=== PATIENT | female | born 1980 | race Hispanic/Latino ===

== ENCOUNTER 2016-09-10 07:30 | Inpatient (IN) | payer OTHER, BC ==
--- NOTE | 2016-09-02 21:22 | History and Physical Report ---
History of Present Illness Date of examination: 09/02/16 Date of admission: 09/10/2016 Chief complaint: 36 yo A1 at 39 weeks admitted for elective c/s for history of prior shoulder dystocia. She also has Reflex Sympathetic Dystrophy and chronic pain which is managed by a pain specialist, Dr Senthil Carrion. He recommended a 48 hour epidural for any or other major operation, as confirmed by [facility] , to avoid a trigger of her RSD. She had a 24 hour epidural for her prior vaginal delivery. She currently takes Morphine sulfate ER 30mg po daily. MBT O pos, rub Imm, GBS neg History of present illness: Remainder of H&P from [facility] and confirmed today OB Intake Father of baby: ANIRUDH PFEIFFER (BRANDON) FOB contact #: [phone] Vital Signs Height: 61 in. Weight (lb): 151.6 BMI: 28.7 Pre- Weight: 148 BP: 100/ 72 mm Hg Ur. Protein: Negative Ur. Glucose: Negative Chief Complaint/Current Status: pt presents c/o missed period ...................................................................Carolyn Skaggs February 07, 2016 2:15 PM Menstrual History Regularity: regular Menses every: 28 days Duration: 4 LMP: 12/11/2015 LMP reliability: definite LMP character: normal test type: urine test Date: 02/07/2016 Planned ? yes EDC Calculations LMP: 09/16/2016 Initial exam (date): 02/07/2016 = 8 Exam: 09/18/2016 EDC Confirmation: 09/16/2016 Gestational Age: 8 2/7 weeks Past History : 2 Term Births: 1 Premature Births: 0 Living Children: 1 Para: 1 Mult. Births: 0 Prev : 0 Aborta: 1 Spont. 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 mucous colitis endometriosis Past Surgical History: Reviewed history from 03/30/2012 and no changes required: positive Past Medical History Anesthesia Complications: negative Anemia: negative Autoimmune Disorder: positive Bleeding Disorder: negative Blood Transfusions: negative Breast Disease: negative Diabetes: negative Heart Disease: negative Hypertension: negative Hepatitis/Liver Disease: negative Kidney Disease/UTI: negative Neurologic/Epilepsy/Migraines: negative Phlebitis/Varicosities: negative Psychiatric: negative Pulmonary Disease/Asthma: negative Thyroid Disease: negative Hospitalizations: negative Surgery (Non-architectural technologist): positive Abnormal PAP: negative KENISHA Exposure: negative Infertility: negative Uterine Anomaly: negative Uterine Surgery (not C/S): negative Other Gynecologic Problems: positive, endometriosis Social Hx: Patient is no etoh, no illicit drug use, no tobacco use Infection History Personal hx. of genital herpes: no Partner hx. of genital herpes: no Varicella/Chicken Pox Status: Previous Disease Genetic History Congenital Heart Defect: Mom: no Dad: no Ana M Disease: Mom: no Dad: no Thalassemia Mom: no Dad: no Neural Tube Defect Mom: no Dad: no Down's Syndrome Mom: no Dad: no Duke-Sachs Mom: no Dad: no Sickle Cell Disease/Trait Mom: no Dad: no Hemophilia Mom: no Dad: no Muscular Dystrophy Mom: no Dad: no Cystic Fibrosis Mom: no Dad: no [place] Chorea Mom: no Dad: no Mental Retardation Mom: no Dad: no Fragile X Mom: no Dad: no Other Genetic/Chromosomal Disorder Mom: no Dad: no Child w/other defect Mom: no Dad: no Enviromental Exposures Enviromental Exposures Reviewed Xray Exposure: no Medication, drug, or alcohol use since LMP: no Chemical/Other Exposure: no Exposure to Cat Liter: no Hx of Parvovirus (Fifth Disease): no Occupational Exposure to Children: none Active Medications (reviewed today): PNV () Current Allergies (reviewed today): No known allergies Laboratory Results Routine Urinalysis Leukocytes: negative Nitrite: negative Urobilinogen: negative Protein: Negative Blood: negative Ketone: negative Bilirubin: negative Glucose: Negative Urine HCG: positive Review of Systems General Denies fever, chills, sweats, anorexia, fatigue, weakness, malaise, weight loss and sleep disorder. Denies nausea, vomiting, headache, swelling of legs, abdominal pain, vaginal discharge, vaginal bleeding and contractions. Denies vaginal discharge, incontinence, dysuria, hematuria, urinary frequency, amenorrhea, menorrhagia, abnormal vaginal bleeding, pelvic pain, genital sores, decreased libido, painful periods, painful sex, urinary urgency, hot flashes, vaginal dryness, vaginal itching and vaginal odor. CV Denies chest pains, palpitations, syncope, dyspnea on exertion, orthopnea, PND and peripheral edema. Resp Denies cough, dyspnea at rest, excessive sputum, hemoptysis, wheezing and pleurisy. GI Denies nausea, vomiting, diarrhea, constipation, change in bowel habits, abdominal pain, melena, hematochezia, jaundice, gas/bloating, indigestion/ heartburn, dysphagia and odynophagia. Endo Denies cold intolerance, heat intolerance, polydipsia, polyphagia, polyuria and unusual weight change. Breast Denies left breast lump, right breast lump, nipple discharge, bloody discharge from nipple, breast pain, abnormal mammogram and breast enlargement. PHYSICAL EXAM HEENT: PERRLA, normal conjunctiva, external nose and nasal mucosa normal, oropharynx clear Neck/Thyroid: supple, thyroid normal Skin no significant abnormal lesions or rashes Chest: respiratory effort normal, clear to auscultation Breasts: normal without skin changes or masses CV: regular, normal S1-S2, no murmur, no rub, no gallop Abdomen: normal bowel sounds, soft, nontender, no HSM Musculoskeletal: grossly normal ROM in joints, no joint tenderness or muscle weakness Neuro: grossly normal DTRs, sensation, strength, cranial nerves Extremities: no clubbing, cyanosis, or edema DEPLOYMENT TECHNICIAN Exams Vulva/Vagina: No lesions, normal BUS, normal rugae Cervix: No lesions; no cervical motion tenderness Uterus: normal size and position, midline, mobile Fundal Ht: 8 Adnexae: no masses or tenderness Rectovaginal: no masses or tenderness Flowsheet View for Follow-up Visit Estimated weeks of gestation: 8 2/7 Weight: 151.6 Blood pressure: 100 / 72 Urine protein: Negative Urine glucose: Negative Urine nitrite: negative Fundal height: 8 Past History - Obstetrical History : 2 Medications and Allergies Allergies Allergy/AdvReac Type Severity Reaction Status Date / Time No Known Allergies Allergy Verified 12/29/13 09:27 Home Medications Medication Instructions Recorded Confirmed Last Taken Type Morphine Sulfate [Morphine Sulfate 30 mg PO DAILY 12/29/13 12/29/13 12/29/13 06: 30 History ER] 30mg Vit No.126/Iron/FA 1 tab PO DAILY 12/29/13 12/29/13 12/28/13 06:30 History [Classic Tablet] 1 tab lamoTRIgine [Lamotrigine] 200 mg PO DAILY 12/29/13 12/29/13 12/29/13 06:30 History 1 tab Lidocaine/Prilocaine [Emla Cream] 5 gm TP ONCE #1 cream..g. 12/31/13 Unknown Rx Results All other labs normal.
[2016-09-11] MEDS ORDERED: REGLAN IV SCH (06:00)
[2016-09-11] MEDS ORDERED: PEPCID IV SCH (06:00)
[2016-09-11] MEDS ORDERED: BICITRA PO SCH (06:00)
[2016-09-11] MEDS ORDERED: ANCEF/STERILE WATER 2 GM/20 ML 20 ML IV NR (06:00)
[2016-09-11] MEDS ORDERED: PITOCin/NS 20 UNIT/1000ML DRIP 1,000 ML IV NR (06:00)
[2016-09-11] MEDS ORDERED: ZOFRAN IV PRN (10:29)
[2016-09-11] MEDS ORDERED: DILAUDID IV PRN (10:29)
[2016-09-11] MEDS ORDERED: BENADRYL IV PRN (10:29)
[2016-09-11] MEDS ORDERED: NARCAN 0.4 MG/1 ML IV PRN ×2 (10:29→13:52)
--- NOTE | 2016-09-11 10:29 | Anesthesia Consultation ---
Anesthesia Consult and Med Hx Date of service: 09/11/16 - Airway Anesthetic Teeth Evaluation: Good ROM Head & Neck: Adequate Mental/Hyoid Distance: Adequate Mallampati Class: Class II Intubation Access Assessment: Probably Good - Pre-Operative Health Status ASA Pre-Surgery Classification: ASA2 Proposed Anesthetic Plan: Epidural, Spinal - Pulmonary Hx Asthma: No COPD: No Hx Pneumonia: No - Cardiovascular System Hx Hypertension: No - Central Nervous System Hx Neuromuscular Disorder: Yes ( reflex sympathetic dystrophy of right foot) Hx Seizures: No Hx Back Pain: (h/o around 250 lumbar epidural injections) Hx Psychiatric Problems: No - Endocrine Hx Renal Disease: No Hx End Stage Renal Disease: No Hx Hypothyroidism: No Hx Hyperthyroidism: No - Hematic Hx Anemia: No Hx Sickle Cell Disease: No - Other Systems Hx Alcohol Use: No Hx Obesity: Yes
--- NOTE | 2016-09-11 10:29 | Anesthesia Day of Surgery ---
Anesthesia Day of Surgery - Day of Surgery Patient Examined: Yes Patient H&P Reviewed: Yes Patient is NPO: Yes
[2016-09-11 10:59] LABS: Basophils % (Auto) 0.4 % (0.0-1.8); Eosinophils % (Auto) 0.7 % (0.0-4.3); Hematocrit 33.1 % (30.3-42.9); Hemoglobin 11.2 gm/dl (10.1-14.3); Mean Corpuscular HGB Conc 34 % (30-34); Mean Corpuscular Hemoglobin 30 pg (28-32); Mean Corpuscular Volume 90 fl (79-97); Platelet Count 320 K/mm3 (140-440); Red Blood Count 3.68 M/mm3 (3.65-5.03); Red Cell Distribution Width 13.7 % (13.2-15.2); White Blood Count 10.1 K/mm3 (4.5-11.0)
[2016-09-11] MEDS ORDERED: SODIUM CHLORIDE FLUSH SYRINGE 10 ML IV NR (11:00)
[2016-09-11] MEDS ORDERED: fentaNYL-BUPIV 2 MCG/ML-0.125% 100 ML EPIDURAL SCH (11:00)
[2016-09-11] MEDS: LACTATED RINGERS 1,000 ML IV NR ×2 (11:00→11:47)
[2016-09-11] MEDS ORDERED: MORPHINE ONE (12:09)
[2016-09-11] MEDS ORDERED: NACL 0.9% IR ONE (12:15)
[2016-09-11] MEDS ORDERED: WATER FOR IRRIG STERILE IR ONE (12:15)
[2016-09-11] MEDS ORDERED: NACL 0.9% 1000 ML 1,000 ML ONE (12:51)
[2016-09-11] MEDS ORDERED: ZOFRAN ONE (12:51)
[2016-09-11] MEDS ORDERED: ePHEDrine SULFATE ONE (13:20)
--- NOTE | 2016-09-11 13:51 | Operative Report ---
Operative Report Operative Report: Date of procedure: 09/11/2016 Pre-operative diagnosis: 39-3/7 weeks' gestation Previous shoulder dystocia Post-operative diagnosis: Same Procedure name(s): Primary lower transverse section via Pfannenstiel skin incision Surgeon: Dr. Luna Information Security Associate: Ms. Leona Hawk CST Anesthesia: Epidural EBL: 500 mL Urine output: 100 mL of clear urine at end of the procedure Fluids: 1500 mL Findings: Liveborn male weight 6 lbs. 15 oz. Apgars of 9 and 9 at one and 5 minutes Normal fallopian tubes and ovaries bilaterally Indications: Patient presents for elective primary due to previous surgery dystocia with previous delivery. The estimated weight was believed to be approximately around the same pounds as previous shoulder dystocia. All risks benefits and alternatives were discussed with the patient. Patient was given ample time to ask questions all of which were addressed. Consents were signed and placed on the chart. Decision was made to proceed with primary section. Procedure: Patient was taking to the operating room. Patient was then prepped and draped in sterile fashion after anesthesia was found to be adequate. A low transverse skin incision was made with the scalpel and carried down to the underlying layer of fascia with the Bovie. The fascia was then incised in the midline and this incision was extended bilaterally with the Bovie. The superior aspect of the fascia was grasped with Juliet clamps tented upward and dissected off of the anterior rectus muscles with the scalpel. In similar fashion the inferior aspect of the fascia was grasped with Juliet clamps tented upward and dissected off of the anterior rectus muscles. The rectus muscles were then bluntly divided in the midline. The peritoneum was identified and entered into sharply. The Yuniel retractor was placed. The bladder blade was placed. The bladder flap was created using the Metzenbaum scissors. The bladder blade was replaced. A lower transverse uterine incision was made with the scalpel and extended bilaterally with the bandage scissors. Artificial rupture of membranes was performed yielding clear amniotic fluid. The 's head was then delivered atraumatically. The anterior shoulder and rest of infant delivered without difficulty. The umbilical cord was clamped x2. The cord was cut. The infant was then placed in sterile bassinet. Cord blood was collected The placenta was manually extracted in its entirety. The uterus was exteriorized and cleared of all clots and debris. The uterine incision was closed using 0 Vicryl in a running locking fashion. A second imbricating layer of the same suture was then created. The posterior cul-de-sac was copiously irrigated. The uterus was returned to the abdomen. The seal was placed along the uterine incision to secure excellent hemostasis. The gutters were also irrigated. The anterior rectus muscles were reapproximated using 3-0 Vicryl. The anterior rectus fascia was reapproximated using 0 Vicryl in a running fashion. The subcuticular fat was reapproximated using 2-0 Vicryl in a running fashion. The skin was reapproximated with 4-0 Monocryl in a subcuticular stitch. The patient tolerated the procedure well. Sponge lap and needle counts were all correct x3. Patient was taken to the recovery room awake and in stable condition.
[2016-09-11] MEDS ORDERED: TUCKS PAD TP PRN (13:52)
[2016-09-11] MEDS ORDERED: LANSINOH TP PRN (13:52)
[2016-09-11] MEDS ORDERED: MOTRIN PO PRN (13:52)
[2016-09-11] MEDS ORDERED: MORPHINE IV PRN (13:52)
[2016-09-11] MEDS ORDERED: ANCEF/NS 1 GM/50 ML 50 ML IV SCH (14:00)
[2016-09-11] MEDS ORDERED: D5LR 1,000 ML IV SCH (14:00)
[2016-09-11] MEDS ORDERED: PITOCin/NS 20 UNIT/1000ML DRIP 1,000 ML IV SCH (14:00)
[2016-09-11] MEDS ORDERED: NORCO 5/325 PO PRN (14:07)
[2016-09-11] MEDS: TORADOL IV PRN (17:10)
[2016-09-11] MEDS: D5LR 1,000 ML IV SCH (17:15)
[2016-09-11] MEDS: ANCEF/NS 1 GM/50 ML 50 ML IV SCH (23:30)
[2016-09-12] MEDS ORDERED: PHENERGAN PO PRN (00:20)
[2016-09-12] MEDS ORDERED: PHENERGAN PR PRN (00:20)
[2016-09-12] MEDS ORDERED: ZOFRAN IV PRN (00:20)
[2016-09-12] MEDS ORDERED: SODIUM CHLORIDE FLUSH SYRINGE 10 ML IV PRN (01:00)
[2016-09-12] MEDS: fentaNYL-BUPIV 2 MCG/ML-0.125% 100 ML EPIDURAL SCH ×2 (01:10→12:50)
[2016-09-12] MEDS: D5LR 1,000 ML IV SCH ×3 (01:13→17:06)
[2016-09-12] MEDS: TORADOL IV PRN ×4 (01:41→21:32)
[2016-09-12] MEDS: BENADRYL PO PRN ×2 (01:42→21:41)
[2016-09-12 02:09] LABS: Hematocrit 26.7 % (30.3-42.9); Hemoglobin 8.8 gm/dl (10.1-14.3)
[2016-09-12] MEDS: ANCEF/NS 1 GM/50 ML 50 ML IV SCH (06:30)
--- NOTE | 2016-09-12 08:11 | Progress Note ---
Assessment and Plan patient doing well, no complaints. reports pain very well controlled. Lochia scant, incision D&I, VSSAF, H&H 8.8/26.7 (anemia d/t blood loss, acute). Continue current management. - Patient Problems (1) Reflex sympathetic dystrophy of lower limb Current Visit: No Status: Acute Plan to address problem: anesthesia to manage pain epidural to remain in place x48h (2) delivery delivered Current Visit: Yes Status: Acute (3) Anemia due to blood loss, acute Current Visit: Yes Status: Acute Plan to address problem: begin po iron monitor for s/s anemia Subjective - Subjective Date of service: 09/12/16 Principal diagnosis: postop day #1 s/p primary c/s Patient reports: appetite normal, pain well controlled, flatus, no nauseated : doing well, bottle feeding Objective - Vital Signs Latest vital signs: Vital Signs Temp Pulse Pulse Resp BP BP Pulse Ox 09/12/16 06:05 18 09/12/16 05:00 98.6 F 65 16 97/57 09/12/16 01:41 18 09/12/16 01:28 98.4 F 62 16 93/57 09/11/16 20:00 18 09/11/16 18:15 18 09/11/16 17:40 18 09/11/16 15:40 97.5 F L 76 18 100/66 09/11/16 14:50 97.5 F L 09/11/16 14:40 63 10 L 108/52 99 09/11/16 14:35 61 15 103/58 97 09/11/16 14:31 61 12 125/61 98 09/11/16 14:25 65 11 L 115/64 100 09/11/16 14:20 58 L 16 115/67 97 09/11/16 14:15 62 11 L 112/57 98 09/11/16 14:10 59 L 13 103/61 98 09/11/16 14:05 74 13 113/56 97 09/11/16 14:00 96.4 F L 78 11 L 116/65 99 09/11/16 13:55 59 L 14 111/56 97 09/11/16 13:50 83 11 L 112/54 96 09/11/16 13:48 69 11 L 99 09/11/16 10:59 98.5 F 97 H 18 120/78 97 09/11/16 10:26 98 H 97 Intake and Output 09/11/16 09/12/16 09/12/16 22:59 06:59 14:59 Intake Total 375 1050 Output Total 450 Balance -75 1050 Intake: IV 375 1050 Ancef/Sterile Water 2 gm/ 50 20 ml 20 ml @ 80 mls/hr IV PREOP NR Rx#:[id number] PITOCin/NS 20 UNIT/1000ML 375 250 DRIP 1,000 ML @ Per Protocol IV TITR NR Rx#: [id number] D5lr 1,000 ml @ 125 mls/ 750 hr IV DIRECT RAJWINDER Rx#: [id number] Output: Urine 450 Indwelling Catheter 450 Other: Total, Output Amount 450 - Exam Breasts: Present: normal Cardiovascular: Present: Regular rate Lungs: Present: Clear to auscultation, Normal air movement Abdomen: Present: normal appearance, soft Uterus: Present: normal, firm, fundal height at umbilicus Extremities: Present: normal Incision: Present: normal, dry, intact (dressing removed, incision D&I) - Labs Labs: Abnormal lab results 09/11/16 09/12/16 Range/Units 10:45 01:52 Hgb 8.8 L (10.1-14.3) gm/dl Hct 26.7 L D (30.3-42.9) % Seg Neutrophils % 73.4 H (40.0-70.0) %
[2016-09-12] MEDS ORDERED: FLUARIX QUAD 2016-2017(36 MOS+) IM ONE (12:00)
[2016-09-12] MEDS ORDERED: BOOSTRIX IM ONE (13:54)
--- NOTE | 2016-09-12 15:44 | Progress Note ---
Subjective Date of service: 09/12/16 Principal diagnosis: postop day #1 s/p primary c/s Interval history: POD #1. s/p Epidual cath infusing Toradol for breakthrough pain control No Nausea/vomiting Itching controlled with Benadryl Pain Score 5 Encouaged incentive spirometry use No anesthetic complications noted Objective - Constitutional Vitals: Vital Signs - 12hr 09/12/16 09/12/16 09/12/16 05:00 06:05 08:29 Temperature 98.6 F 98.6 F Pulse Rate [ 61 From Monitor] Pulse Rate [ 65 Left From Monitor] Respiratory 16 18 12 Rate Blood Pressure 97/57 93/62 [Left Arm] 09/12/16 09/12/16 09/12/16 08:30 10:00 11:55 Temperature 97.7 F Pulse Rate [ 68 From Monitor] Pulse Rate [ Left From Monitor] Respiratory 16 20 18 Rate Blood Pressure 101/61 [Left Arm] 09/12/16 09/12/16 09/12/16 12:48 12:50 14:00 Temperature Pulse Rate [ From Monitor] Pulse Rate [ Left From Monitor] Respiratory 16 16 20 Rate Blood Pressure [Left Arm] - Labs CBC & Chem 7: 09/12/16 01:52 Labs: Abnormal lab results 09/12/16 Range/Units 01:52 Hgb 8.8 L (10.1-14.3) gm/dl Hct 26.7 L D (30.3-42.9) %
[2016-09-12] MEDS: COLACE PO SCH (21:33)
[2016-09-12] MEDS: FEOSOL PO SCH (21:34)
[2016-09-13] MEDS: D5LR 1,000 ML IV SCH (00:57)
[2016-09-13] MEDS: fentaNYL-BUPIV 2 MCG/ML-0.125% 100 ML EPIDURAL SCH (00:58)
[2016-09-13] MEDS: TORADOL IV PRN (03:55)
--- NOTE | 2016-09-13 07:31 | Discharge Summary ---
Providers - Providers Date of Admission: 09/11/16 09:34 Date of discharge: 09/13/16 (pt requesting d/c today if possible) Attending physician: RON KAPADIA Primary care physician: RON KAPADIA Hospitalization Reason for admission: section Delivery: Procedure: primary low transverse Episiotomy: none Laceration: none Incision: normal, dry, intact Other procedures: none complications: none Discharge diagnosis: IUP at term delivered [place] baby: male Hospital course: Uncomplicated primary section Pt states she is feeling fine Requesting epidural be slowly decreased. Will ask anesthesia to see pt to start the weaning process. VSS FF below umb Lochia scant Incision D&I No s/sx of anemia, will observe pt as she is up ambulating and doing more self care later today. Doing well s/p primary section P : d/c today with instructions. Pt aware we will want her to stay until PM to see how she does once the epidural is removed. She and voice understanding and agreement. RXs provided Condition at discharge: Good Disposition: DISCHARGED TO HOME OR SELFCARE - Discharge Diagnoses (1) delivery delivered Status: Acute Comment: RTO one week for postop care (2) Reflex sympathetic dystrophy of lower limb Status: Acute Comment: pt will f/u as instructed with pain mgt (3) Anemia due to blood loss, acute Status: Acute Comment: will continue po iron at home high iron diet Plan - Discharge Medications Prescriptions: Ibuprofen [Motrin 800 MG tab] 800 mg PO Q8HR PRN #30 tablet PRN Reason: Pain Lidocain2.5%/Prilocai2.5% [Emla] 5 gm TP ONCE #1 tube - Provider Discharge Summary Activity: routine, no sex for 6 weeks, no heavy lifting 4 weeks, no strenuous exercise Diet: routine Instructions: routine Additional instructions: [] Smoking cessation referral if applicable(refer to patient education folder for contact #) [] Refer to [facility] Booklet Call your doctor immediately for: * Fever > 100.5 * Heavy vaginal bleeding ( >1 pad per hour) * Severe persistent headache * Shortness of breath * Reddened, hot, painful area to leg or breast * Drainage or odor from incision. * Keep incision clean and dry at all times and follow doctor's instructions regarding bathing/showering - Follow up plan Follow up: RON KAPADIA MD [Primary Care Provider] - 7 Days (Congratulations! Please call [phone] to schedule your postoperative visit in 1 week and your son's circumcision in one week. Bring the EMLA cream with you to his visit. Call with any concerns.)
[2016-09-13] MEDS: COLACE PO SCH (10:26)
[2016-09-13] MEDS: FEOSOL PO SCH (12:02)
[2016-09-13 16:54] VITALS: BP 110/65
== END 2016-09-13 17:15 | disposition home or self-care (01) | DRG 765 ==
LOC: APU 09-11 09:34 → OB 09-11 16:01
PROVIDERS: ADMIT Obstetrics & Gynecology; ATTEND Obstetrics & Gynecology
PROC: 10D00Z1 Extraction of Products of Conception, Low, Open Approach (ICD-10-PCS; principal; 2016-09-11)
DX: O99.354 Diseases of the nervous system complicating childbirth (principal); D62 Acute posthemorrhagic anemia; G90.529 Complex regional pain syndrome I of unspecified lower limb; O75.89 Other specified complications of labor and delivery; G43.909 Migraine, unspecified, not intractable, without status migrainosus; O99.02 Anemia complicating childbirth; Z37.0 Single live birth; Z3A.39 39 weeks gestation of pregnancy
CPT/HCPCS: 36415; 85014; 85018; 85025; 86850; 86900; 86901; 88307; 90686; C9250; J0690; J1885; J2270; J2405; J2590; J2765; J7030; J7120; J7121